=== PATIENT | male | born 1975 | race Caucasian/White ===

== ENCOUNTER 2016-07-28 04:10 | Day surgery (SDC) | payer BC ==
[2016-07-20 15:56] LABS: BASOPHILS 0.6 %; BASOPHILS ABSOLUTE 0.05 10/3/uL (0.0-0.16); EOSINOPHILS 1.5 %; EOSINOPHILS ABSOLUTE 0.12 10/3/uL (0.0-0.53); HEMATOCRIT 45.8 % (40.0-51.0); HEMOGLOBIN 16.5 g/dL (13.6-17.8); IMMATURE GRANULOCYTES 0.2 %; IMMATURE GRANULOCYTES ABSOLUTE 0.02 10/3/uL (0.0-0.11); LYMPHOCYTES 30.7 %; LYMPHOCYTES ABSOLUTE 2.46 10/3/uL (0.67-4.30); MANUAL DIFF NO %; MEAN CORPUSCULAR HEMOGLOB 31.3 pg (26.0-34.0); MEAN CORPUSCULAR VOLUME 86.7 fL (80-100); MEAN PLATELET VOLUME 9.1 fL (9.2-13.0); MONOCYTES 7.2 %; MONOCYTES ABSOLUTE 0.58 10/3/uL (0.21-1.20); NEUTROPHILS 59.8 %; NEUTROPHILS ABSOLUTE 4.79 10/3/uL (2.02-8.40); PLATELET COUNT 198 10/3/uL (150-400); RBC DISTRIBUTION WIDTH 12.9 % (12.0-16.0); RED CELL COUNT 5.28 10/6/uL (4.7-6.1)
[2016-07-20 16:17] LABS: A/G RATIO 1.2 (0.7-1.9); ALBUMIN 3.9 G/DL (3.5-5.0); ALKALINE PHOSPHATASE 79 U/L (45-117); BUN (BLOOD UREA NITROGEN) 18 MG/DL (6-23); CALCIUM, SERUM 8.5 MG/DL (8.5-10.4); CHLORIDE, SERUM 107 MMOL/L (96-112); CO2 (CARBON DIOXIDE) 24 MMOL/L (24-34); CREATININE 1.35 MG/DL (0.70-1.30); GFR AFRICAN AMERICAN 75 ML/MIN (>=60); GFR NON AFRICAN AMERICAN 65 ML/MIN (>=60); GLOBULIN 3.2 G/DL (2.5-4.1); GLUCOSE, SERUM 99 MG/DL (60-99); POTASSIUM, SERUM 4.2 MMOL/L (3.5-5.3); SGOT(AST) 25 U/L (5-40); SGPT(ALT) 70 U/L (5-65); SODIUM, SERUM 141 MMOL/L (135-148); TOTAL BILIRUBIN 0.5 MG/DL (0-1.2); TOTAL PROTEIN 7.1 G/DL (6.0-8.5)
--- NOTE | ~2016-07-28 | OP ---
Record Of Operation [facility] [address] [place]. [address] NAME: ALVARO CRAFT : 73 STATUS : [facility]#: [id number] AGE: 41 ADM/REG DATE : 07/28/16 MR#: [id number] REPORT SERV DATE: 07/30/16 DICTATED BY: AFSHIN MCKEE DATE: 07/30/16 REPORT STATUS : Draft TRANSCRIBED BY: MODL DATE: 07/30/16 DATE OF PROCEDURE: 07/28/2016 PREOPERATIVE DIAGNOSIS: Umbilical hernia, incarcerated. POSTOPERATIVE DIAGNOSIS: Umbilical hernia, incarcerated. PROCEDURE PERFORMED: Repair of incarcerated umbilical hernia with implantation of mesh. SURGEON: Afshin Mckee M.D. ANESTHESIA: General. ESTIMATED BLOOD LOSS: Minimal. SPECIMENS REMOVED: None. BRIEF HISTORY: Mr. Craft is a 41-year-old gentleman, who presents with a large umbilical hernia with chronic incarceration. This has been growing, becoming tender and symptomatic. He presents today for repair. FINDINGS AT THE TIME OF PROCEDURE: Mr. Craft was noted to have a 2.5 to 3 cm fascial defect that contained incarcerated fatty tissue. This was reduced and the hernia was repaired using a medium piece Ethicon PROCEED ventral hernia patch. DETAILS OF PROCEDURE: Following informed consent, the patient was taken to the operative suite and after successful induction of general endotracheal anesthesia, his abdomen was prepped and draped in usual sterile fashion. Ioban adhesive drape was applied. A curvilinear skin incision was made over lying the palpable hernia defect. Skin hooks used to elevate the skin edges and the hernia sac was from the overlying umbilical skin sharply using Metzenbaum scissors. The fascial defect was clearly defined. The hernia sac contained largely a viable fatty tissue. We reduced the hernia sac and its contents and developed a subfascial extraperitoneal plane to exclude the peritoneal cavity for mesh placement. We did this circumferentially and then measured the defect and opted to place a medium piece of Ethicon PROCEED ventral patch. This was deployed in the subfascial extraperitoneal space and secured to the fascia using interrupted 0 Ethibond sutures. Once the mesh had been properly fixated, the fascia was approximated over the mesh using 0 Ethibond sutures. The skin edges were then reapproximated using 3-0 Vicryl subdermal followed by 4-0 Monocryl subcuticular suture and Dermabond. At the completion of the case, all sponge and needle counts were correct. The patient was extubated and transferred to the recovery room in satisfactory condition having suffered no apparent perioperative complications. IDK/MODL Record Of Operation [address] [place]. [address] NAME: ALVARO CRAFT : 73 STATUS : [facility]#: [id number] AGE: 41 ADM/REG DATE : 07/28/16 MR#: [id number] REPORT SERV DATE: 07/30/16 DICTATED BY: AFSHIN MCKEE DATE: 07/30/16 REPORT STATUS : Draft TRANSCRIBED BY: MODL DATE: 07/30/16 Afshin Mckee M.D. / [id number] CC: Laura Casper M.D.
[~2016-07-28 04:10] MED LIST: ASA5GR PO; MOBIC15 MG PO
== END 2016-07-28 10:00 | disposition home or self-care (01) ==
LOC: SDC 04:10
PROVIDERS: Surgery
PROC: 0WUF0JZ Supplement Abdominal Wall with Synthetic Substitute, Open Approach (ICD-10-PCS; principal; 2016-07-28 05:45)
DX: K42.0 Umbilical hernia with obstruction, without gangrene (principal); E78.5 Hyperlipidemia, unspecified; M19.90 Unspecified osteoarthritis, unspecified site; Z79.82 Long term (current) use of aspirin; Z79.899 Other long term (current) drug therapy; E78.00 Pure hypercholesterolemia, unspecified; Z98.890 Other specified postprocedural states; Z86.010 Personal history of colon polyps; Z98.52 Vasectomy status; Z90.49 Acquired absence of other specified parts of digestive tract; Z90.89 Acquired absence of other organs
CPT/HCPCS: 80053; 85025; 87641; A9270-GY; C1781; J0690; J1170; J2250; J2405; J2710; J3010